=== PATIENT | female | born 1955 | race Caucasian/White ===

== ENCOUNTER 2019-06-24 17:52 | Emergency (ER) | payer OTHER ==
[~2019-06-24] VITALS: Ht 165.1 cm; Wt 56.7 kg
[~2019-06-24 17:52] MED LIST: ACETAMINOPHEN-1 EAC1 PO; ACTONEL150 MG PO; ALIGN4 MG PO; CARISOPRODOL 3350 MG PO; CRESTOR40 MG PO; FISH OIL 1,001000 M2 PO; SINGULAIR5 MG PO; SYMAX-SR0.375 MG PO; TRAMADOL 50 MG50 MG PO; VITAMIN D2000 UNIT PO
[2019-06-24] MEDS ORDERED: PROLIA60 MG/1 ML SUBQ (18:02)
[2019-06-24] MEDS ORDERED: KEFLEX500 M1 PO (18:07)
[2019-06-24 19:41] VITALS: BP 135/84
== END 2019-06-24 19:42 | disposition home or self-care (01) ==
LOC: M.ERS 17:52
DX: S60.452A Superficial foreign body of right middle finger, initial encounter (principal); K58.9 Irritable bowel syndrome, unspecified; Z88.1 Allergy status to other antibiotic agents; Z88.2 Allergy status to sulfonamides; Z88.8 Allergy status to other drugs, medicaments and biological substances; X58.XXXA Exposure to other specified factors, initial encounter; Y93.89 Activity, other specified; Y92.89 Other specified places as the place of occurrence of the external cause; Y99.8 Other external cause status